=== PATIENT | male | born 1945 | race Caucasian/White ===

== ENCOUNTER → 2016-12-12 | Outpatient (CLI) | payer MEDICARE ==
[2016-12-12 09:02] LABS: Basophils % (A) 0 %; CH 33.3; CHCM 36.3; Eosinophils # (A) 0.1 k/uL (0-0.7); Eosinophils % (A) 2 %; HCT 50.8 % (39.0-53.0); HDW 2.92; HGB 17.4 gm/dL (13.0-17.5); Luc # (Auto) 0.05; Luc % (Auto) 1; Lymphocytes # (A) 0.8 k/uL (1.0-4.8); Lymphocytes % (A) 17 %; MCH 31.5 pg (25.0-35.0); MCHC 34.2 g/dL (31.0-37.0); MCV 92.2 fL (80.0-100.0); Mean Platelet Volume 7.7; Monocytes # (A) 0.4 k/uL (0-1.0); Monocytes % (A) 8 %; Neutrophils # (A) 3.6 k/uL (1.3-7.7); Neutrophils % (A) 72 %; RBC 5.51 m/uL (4.30-5.90); RDW 14.2 % (11.5-15.5)
[2016-12-12 10:41] LABS: ALT 35 U/L (21-72); AST 30 U/L (17-59); Alkaline Phosphatase 74 U/L (38-126); Anion Gap 8 mmol/L; Blood Urea Nitrogen 18 mg/dL (9-20); Calcium 9.1 mg/dL (8.4-10.2); Carbon Dioxide 28 mmol/L (22-30); Chloride 105 mmol/L (98-107); Cholesterol 181 mg/dL (<200); Glucose 89 mg/dL (74-99); HDL Cholesterol 47 mg/dL (40-60); Non-African American GFR(MDRD) >60 (>60 ml/min/1.73 sqM); Potassium 3.7 mmol/L (3.5-5.1); Sodium 141 mmol/L (137-145); Total Bilirubin 1.3 mg/dL (0.2-1.3); Total Protein 6.1 g/dL (6.3-8.2)
== END | disposition home or self-care (01) ==
LOC: LABWHC1 08:28
PROVIDERS: ATTEND Internal Medicine
DX: Z00.00 Encounter for general adult medical examination without abnormal findings (principal); E78.5 Hyperlipidemia, unspecified
CPT/HCPCS: 84439; 80061; 80053; 84443; 85025; 36415; G0103

== ENCOUNTER 2017-08-08 07:57 | Day surgery (SDC) | payer MEDICARE ==
[2017-08-07 08:52] VITALS: BMI 25.8
[~2017-08-08 07:57] MED LIST: DEXAMETHASONE SOD PHOSPHATE 10 MG/ML 1 ML VIAL IV ONE; HEPARIN SODIUM,PORCINE 5,000 UNIT/ML 1 ML VIAL SQ ONE; HYDROmorphone 0.5 MG/0.5 ML SYRINGE IVP PRN; LIDOCAINE 1% 20 ML VIAL (10MG/ML) FOR IV START INTRADERMA PRN; MIDAZOLAM 2 MG/2 ML VIAL IV PRN; MORPHINE SULFATE 2 MG/ML SYRINGE IV PRN; ONDANSETRON 4 MG/2 ML VIAL IVP ONE; SCOPOLAMINE 1.5MG/72HR PATCH TRANSDERM ONE; ceFAZolin IN SWFI 2 GM/20 ML SYRINGE IVP ONE
[2017-08-08 08:32] LABS: Glucose,Whole Blood 88 mg/dL (75-99)
[2017-08-08] MEDS: LACTATED RINGERS 1,000 ML IV SCH ×2 (08:45→08:46)
[2017-08-08] MEDS ORDERED: GLYCOPYRROLATE 0.2 MG/ML 2 ML VIAL ONE (09:53)
[2017-08-08] MEDS ORDERED: fentaNYL (PF) 50 MCG/ML 2 ML AMP ONE (09:53)
[2017-08-08] MEDS ORDERED: MIDAZOLAM 2 MG/2 ML VIAL ONE (09:53)
[2017-08-08] MEDS ORDERED: SUCCINYLCHOLINE CHLORIDE 100 MG/5 ML SYR IV ONE (09:53)
[2017-08-08] MEDS ORDERED: PROPOFOL 10 MG/ML 20 ML VIAL IV ONE (09:53)
[2017-08-08] MEDS ORDERED: LIDOCAINE 1% INJ 10MG/ML (20 ML MDV) ONE (09:53)
[2017-08-08] MEDS ORDERED: NEOSTIGMINE 1 MG/ML 10 ML VIAL ONE (09:53)
[2017-08-08] MEDS ORDERED: ePHEDrine SULFATE/0.9% NACL/PF 50 MG/5 ML SYRINGE IV ONE (09:53)
[2017-08-08] MEDS ORDERED: ROCURONIUM BROMIDE 10 MG/ML 10 ML VIAL IV ONE (09:53)
[2017-08-08] MEDS ORDERED: LABETALOL 5 MG/ML VIAL MDV ONE (09:53)
[2017-08-08] MEDS ORDERED: BUPIVACAINE (PF) 0.25% 30 ML VIAL SQ ONE (10:30)
[2017-08-08] MEDS ORDERED: NALOXONE 0.4 MG/ML 1 ML VIAL IV PRN (11:34)
[2017-08-08] MEDS ORDERED: HYDROcodone/APAP 5-325MG 1 EACH TAB PO PRN (11:34)
--- NOTE | 2017-08-08 11:37 | P.OP ---
Date of Procedure: 08/08/17 Procedure(s) Performed: PREOPERATIVE DIAGNOSIS: Left inguinal hernia POSTOPERATIVE DIAGNOSIS: Same PROCEDURE: Laparoscopic repair left inguinal hernia with the da Gerri robot assistance with mesh SURGEON: Yunior EBL: Minimal ANESTHESIA: General COMPLICATIONS: None OPERATIVE PROCEDURE: Patient was placed in the operating table in the supine position. The patient was placed under general anesthesia. The abdomen was prepped and draped in usual sterile fashion. A small curvilinear supraumbilical incision was made. The fascia was retracted anteriorly with Xavi forceps. The Veress needle was inserted. The saline drop test was normal. Insufflation took place to 15 mmHg. A 5 mm trocar was then inserted. 2 additional 8 mm trochars were placed in the right upper quadrant and left upper quadrant under visualization. The initial 5 was then switched to an 8 mm trocar. The robotic arms were then brought in and docked into place. The fenestrated bipolar was used in the left arm and the laparoscopic kadeem was utilized in the right arm. A 30 12 mm scope was used in the up position. The peritoneal cavity was inspected. The patient had a moderate-sized indirect left inguinal hernia with some adhesions to the sigmoid colon. There was no visible right-sided hernia noted area The peritoneum was incised in a horizontal fashion cephalad to the internal inguinal ring. Following that careful dissection of the preperitoneal space took place. This took place using both electrocautery, sharp dissection but primarily blunt dissection. Visualization of the pubic tubercle and Yuniel's ligament took place medially. Full dissection took place laterally as well. The hernia sac was fully dissected. Once we had adequate space the 15 x 10 progrip mesh was advanced into the preperitoneal space and flattened out appropriately to cover all potential hernia sites. No sutures were used. The peritoneal defect was then closed using a locking 2-0 VLok suture. The pneumoperitoneum was then evacuated. The fascia at the 12 mm site was closed using the Daniel Rush technique and an 0 Vicryl stitch. The skin of all 3 sites was closed using a 4- 0 Monocryl stitch. Steri-Strips and sterile dressings were applied. DISPOSITION: Stable to recovery room
[2017-08-08 11:44] VITALS: TEMP 97.2
[2017-08-08] MEDS ORDERED: MORPHINE SULFATE 4MG/4ML SYRG IVP ONE (11:55)
[2017-08-08] MEDS ORDERED: MORPHINE SULFATE 4 MG/ML SYRINGE IVP ONE (12:05)
[2017-08-08] MEDS ORDERED: fentaNYL (PF) 50 MCG/ML 2 ML AMP IVP ONE (12:16)
[2017-08-08] MEDS ORDERED: HYDROcodone/APAP 5-325MG 1 EACH TAB PO ONE (13:12)
[2017-08-08 13:50] VITALS: RESP 16
[2017-08-08] MEDS ORDERED: LACTATED RINGERS 1,000 ML IV ONE (14:47)
[2017-08-08 14:59] VITALS: BP 154/85; PULSE 92
== END 2017-08-08 16:08 | disposition home or self-care (01) ==
LOC: OR 07:57
PROVIDERS: ATTEND Surgery
DX: K40.90 Unilateral inguinal hernia, without obstruction or gangrene, not specified as recurrent (principal); K66.0 Peritoneal adhesions (postprocedural) (postinfection); I49.1 Atrial premature depolarization; I45.81 Long QT syndrome; J45.909 Unspecified asthma, uncomplicated; M10.9 Gout, unspecified; I10 Essential (primary) hypertension; Z79.51 Long term (current) use of inhaled steroids; Z79.899 Other long term (current) drug therapy; Z87.891 Personal history of nicotine dependence
CPT/HCPCS: 93005; 49650; C1781; J2250; J2270 ×2; J1644; J1100; J2710; J2405; J2001; J3010; J0330; J2704; J0690

== ENCOUNTER 2017-11-20 11:27 | Emergency (ER) | payer MEDICARE ==
[2017-11-20] MEDS ORDERED: MECLIZINE 12.5 MG TAB PO STA (12:21)
--- NOTE | 2017-11-20 12:24 | ED ---
Dizziness HPI - General Chief Complaint: Dizziness Stated Complaint: DIZZINESS Time Seen by Provider: 11/20/17 11:50 Source: patient, family, RN notes reviewed Mode of arrival: wheelchair Limitations: no limitations - History of Present Illness Initial Comments: This is a 72-year-old male who states he was a local drugstore today when he started feeling strange felt like he was weaving while he was walking. No headache no palpitations no focal weakness. She is focal. He was off balance. He was able to walk out of the store drive home he felt like he was on the verge of passing out. He states he is feeling better now. He does have a history of vertigo in the past and states it feels different. He has not had a spinning sensation. He does state however his sinuses have been congested over last several days. No overt ear pain or sore throat. No overt rhinorrhea at this time no chest pain no palpitations no cough or shortness of breath. MD Complaint: dizziness, lightheadedness, difficulty walking - Related Data Home Medications Medication Instructions Recorded Confirmed Albuterol Sulfate [Proair Hfa] 2 puff INHALATION RT-QID PRN 02/22/14 11/20/17 Montelukast [Singulair] 10 mg PO DAILY 08/07/17 11/20/17 Brimonidine Tartrate [Alphagan P 1 drops BOTH EYES BID 11/20/17 11/20/17 0.2% Ophth Soln] Mometasone Furoate [Asmanex] 1 puff INHALATION RT-HS 11/20/17 11/20/17 Previous Rx's Medication Instructions Recorded Meclizine [Antivert] 25 mg PO TID #20 tab 11/20/17 Allergies Allergy/AdvReac Type Severity Reaction Status Date / Time No Known Allergies Allergy Verified 11/20/17 11:50 Review of Systems ROS Statement: Those systems with pertinent positive or pertinent negative responses have been documented in the HPI. ROS Other: All systems not noted in ROS Statement are negative. Past Medical History Past Medical History: Asthma, Eye Disorder, Hypertension, Osteoarthritis (OA) Additional Past Medical History / Comment(s): back injury, glaucoma, OCCASIONAL IRREGULAR HEART BEAT History of Any Multi-Drug Resistant Organisms: None Reported Past Surgical History: Orthopedic Surgery Additional Past Surgical History / Comment(s): rotator cuff repair- LEFT SHOULDER , LYMPH NODE REMOVED Past Anesthesia/Blood Transfusion Reactions: Motion Sickness Past Psychological History: No Psychological Hx Reported Smoking Status: Former smoker Past Alcohol Use History: Rare Past Drug Use History: None Reported - Past Family History Father Family Medical History: Cancer Additional Family Medical History / Comment(s): father had esophageal cancer Mother Family Medical History: Hypertension General Exam - General Exam Comments Initial Comments: This is a well-developed well-nourished awake alert oriented 3 male Limitations: no limitations General appearance: alert, in no apparent distress Head exam: Present: atraumatic, normocephalic, normal inspection Eye exam: Present: normal appearance, PERRL, EOMI. Absent: scleral icterus, conjunctival injection, periorbital swelling ENT exam: Present: normal exam, mucous membranes moist Neck exam: Present: normal inspection, full ROM, other (No stridor JVD or bruits ). Absent: tenderness, meningismus, lymphadenopathy Respiratory exam: Present: normal lung sounds bilaterally. Absent: respiratory distress, wheezes, rales, rhonchi, stridor Cardiovascular Exam: Present: regular rate, normal rhythm, normal heart sounds. Absent: systolic murmur, diastolic murmur, rubs, gallop, clicks GI/Abdominal exam: Present: soft, normal bowel sounds. Absent: distended, tenderness, guarding, rebound, rigid Extremities exam: Present: normal inspection, full ROM, normal capillary refill. Absent: tenderness, pedal edema, joint swelling, calf tenderness Back exam: Present: normal inspection Neurological exam: Present: alert, oriented X3, CN II-XII intact Psychiatric exam: Present: normal affect, normal mood Skin exam: Present: warm, dry, intact, normal color. Absent: rash Course Vital Signs 11/20/17 11/20/17 11:30 13:13 Temperature 97.4 F L Pulse Rate 73 50 L Respiratory 16 18 Rate Blood Pressure 189/76 164/77 O2 Sat by Pulse 99 96 Oximetry EKG Findings - EKG Results: EKG: interpreted by SEGUNDO, sinus rhythm (Sinus rhythm rate 65. We'll 196 QRS duration 124 QT since QTC 436/453 nonspecific interventricular conduction delay is noted.) Medical Decision Making - Medical Decision Making She was observed for a period time he did ambulate without difficulty. He is feeling better after the Antivert. We did discuss possibilities of the symptoms. He states he's had a complete cardiac workup including checking his arteries going to his brain in the last year apparently was clear he'll be discharged on a prescription of Antivert he is follow-up with his doctor and return when necessary - Lab Data Result diagrams: 11/20/17 11:52 11/20/17 11:52 Lab Results 11/20/17 11/20/17 11/20/17 Range/Units 11:52 11:52 11:52 WBC 5.7 (3.8-10.6) k/uL RBC 5.47 (4.30-5.90) m/uL Hgb 17.0 (13.0-17.5) gm/dL Hct 50.3 (39.0-53.0) % MCV 91.9 (80.0-100.0) fL MCH 31.0 (25.0-35.0) pg MCHC 33.7 (31.0-37.0) g/dL RDW 12.9 (11.5-15.5) % Plt Count 143 L (150-450) k/uL Neutrophils % 71 % Lymphocytes % 16 % Monocytes % 9 % Eosinophils % 2 % Basophils % 0 % Neutrophils # 4.0 (1.3-7.7) k/uL Lymphocytes # 0.9 L (1.0-4.8) k/uL Monocytes # 0.5 (0-1.0) k/uL Eosinophils # 0.1 (0-0.7) k/uL Basophils # 0.0 (0-0.2) k/uL Sodium 139 (137-145) mmol/L Potassium 4.4 (3.5-5.1) mmol/L Chloride 106 (98-107) mmol/L Carbon Dioxide 25 (22-30) mmol/L Anion Gap 8 mmol/L BUN 23 H (9-20) mg/dL Creatinine 0.88 (0.66-1.25) mg/dL Est GFR (CKD-EPI)AfAm >90 (>60 ml/min/1.73 sqM) Est GFR (CKD-EPI)NonAf 85 (>60 ml/min/1.73 sqM) Glucose 78 (74-99) mg/dL Calcium 9.0 (8.4-10.2) mg/dL Magnesium 2.3 (1.6-2.3) mg/dL Total Bilirubin 1.0 (0.2-1.3) mg/dL AST 29 (17-59) U/L ALT 34 (21-72) U/L Alkaline Phosphatase 66 (38-126) U/L Total Creatine Kinase 87 (55-170) U/L CK-MB (CK-2) 2.4 (0.0-2.4) ng/mL CK-MB (CK-2) Rel Index 2.8 Troponin I <0.012 (0.000-0.034) ng/mL Total Protein 6.2 L (6.3-8.2) g/dL Albumin 4.0 (3.5-5.0) g/dL Urine Color Urine Appearance (Clear) Urine pH (5.0-8.0) Ur Specific [place] (1.001-1.035) Urine Protein (Negative) Urine Glucose (UA) (Negative) Urine Ketones (Negative) Urine Blood (Negative) Urine Nitrite (Negative) Urine Bilirubin (Negative) Urine Urobilinogen (<2.0) mg/dL Ur Leukocyte Esterase (Negative) 11/20/17 Range/Units 13:19 WBC (3.8-10.6) k/uL RBC (4.30-5.90) m/uL Hgb (13.0-17.5) gm/dL Hct (39.0-53.0) % MCV (80.0-100.0) fL MCH (25.0-35.0) pg MCHC (31.0-37.0) g/dL RDW (11.5-15.5) % Plt Count (150-450) k/uL Neutrophils % % Lymphocytes % % Monocytes % % Eosinophils % % Basophils % % Neutrophils # (1.3-7.7) k/uL Lymphocytes # (1.0-4.8) k/uL Monocytes # (0-1.0) k/uL Eosinophils # (0-0.7) k/uL Basophils # (0-0.2) k/uL Sodium (137-145) mmol/L Potassium (3.5-5.1) mmol/L Chloride (98-107) mmol/L Carbon Dioxide (22-30) mmol/L Anion Gap mmol/L BUN (9-20) mg/dL Creatinine (0.66-1.25) mg/dL Est GFR (CKD-EPI)AfAm (>60 ml/min/1.73 sqM) Est GFR (CKD-EPI)NonAf (>60 ml/min/1.73 sqM) Glucose (74-99) mg/dL Calcium (8.4-10.2) mg/dL Magnesium (1.6-2.3) mg/dL Total Bilirubin (0.2-1.3) mg/dL AST (17-59) U/L ALT (21-72) U/L Alkaline Phosphatase (38-126) U/L Total Creatine Kinase (55-170) U/L CK-MB (CK-2) (0.0-2.4) ng/mL CK-MB (CK-2) Rel Index Troponin I (0.000-0.034) ng/mL Total Protein (6.3-8.2) g/dL Albumin (3.5-5.0) g/dL Urine Color Yellow Urine Appearance Clear (Clear) Urine pH 6.0 (5.0-8.0) Ur Specific [place] 1.012 (1.001-1.035) Urine Protein Negative (Negative) Urine Glucose (UA) Negative (Negative) Urine Ketones Negative (Negative) Urine Blood Negative (Negative) Urine Nitrite Negative (Negative) Urine Bilirubin Negative (Negative) Urine Urobilinogen <2.0 (<2.0) mg/dL Ur Leukocyte Esterase Negative (Negative) - Radiology Data Radiology results: report reviewed (I did review the imaging and report no acute findings.), image reviewed Disposition Clinical Impression: Vertigo Disposition: HOME SELF-CARE Condition: Good Instructions: Dizziness (ED), Vertigo (ED) Prescriptions: Meclizine [Antivert] 25 mg PO TID #20 tab Is patient prescribed a controlled substance at d/c from ED?: No Referrals: Kori Cruz MD [Primary Care Provider] - 1-2 days
[2017-11-20 12:38] LABS: Basophils % (A) 0 %; Eosinophils # (A) 0.1 k/uL (0-0.7); Eosinophils % (A) 2 %; HCT 50.3 % (39.0-53.0); Lymphocytes # (A) 0.9 k/uL (1.0-4.8); Lymphocytes % (A) 16 %; MCHC 33.7 g/dL (31.0-37.0); MCV 91.9 fL (80.0-100.0); Monocytes # (A) 0.5 k/uL (0-1.0); Monocytes % (A) 9 %; Neutrophils % (A) 71 %; Platelet Count 143 k/uL (150-450); RBC 5.47 m/uL (4.30-5.90); RDW 12.9 % (11.5-15.5); WBC 5.7 k/uL (3.8-10.6)
[2017-11-20 12:52] LABS: ALT 34 U/L (21-72); AST 29 U/L (17-59); Alkaline Phosphatase 66 U/L (38-126); Anion Gap 8 mmol/L; Blood Urea Nitrogen 23 mg/dL (9-20); Carbon Dioxide 25 mmol/L (22-30); Chloride 106 mmol/L (98-107); Glucose 78 mg/dL (74-99); Magnesium 2.3 mg/dL (1.6-2.3); Potassium 4.4 mmol/L (3.5-5.1); Sodium 139 mmol/L (137-145); Total Protein 6.2 g/dL (6.3-8.2)
--- NOTE | 2017-11-20 12:59 | CT ---
EXAMINATION TYPE: CT brain wo con DATE OF EXAM: 11/20/2017 COMPARISON: None INDICATION: Dizziness DLP: 1106 mGycm, Automated exposure control for dose reduction was used. CONTRAST: None CT of the brain is performed utilizing 3 mm thick sections through the posterior fossa and 3 mm thick sections through the remaining calvarium. Study is performed within 24 hours of arrival to the hosp ital. No abnormal hyperdensity is present to suggest an acute intracranial hemorrhage. No mass lesion is evident. No acute infarcts are evident. Some subtle subcortical white matter change may be present in the left frontal parietal region be some chronic white matter ischemic change. Subcortical infarct be conside red. Ventricles and sulci are appropriate for the patient age. Paranasal sinuses and mastoid air cells within the [id number] are clear. IMPRESSIONS: 1. Chronic appearing subcortical white matter change greatest in the left frontal parietal region 2 . An acute intracranial process is not identified.
[2017-11-20 13:02] LABS: Creatine Kinase 87 U/L (55-170)
[2017-11-20 13:15] VITALS: RESP 18
[2017-11-20 13:18] LABS: Creatine Kinase MB 2.4 ng/mL (0.0-2.4); Troponin I <0.012 ng/mL (0.000-0.034)
--- NOTE | 2017-11-20 13:26 | XR ---
EXAMINATION TYPE: XR chest 2V DATE OF EXAM: 11/20/2017 COMPARISON: 02/22/2014 INDICATION: Cough, dizzy, asthma history TECHNIQUE: Frontal and lateral views of the chest are obtained. FINDINGS: The heart size is normal. The pulmonary vasculature is normal. The lungs are clear. IMPRESSION: 1. No acute pulmonary process.
[2017-11-20 13:29] LABS: Appearance,Urine Clear (Clear); Bilirubin,Urine Negative (Negative); Blood,Urine Negative (Negative); Color,Urine Yellow; Glucose,Urine (UA) Negative (Negative); Ketones,Urine Negative (Negative); Leukocyte Esterase,Urine Negative (Negative); Nitrite,Urine Negative (Negative); Protein,Urine Negative (Negative); Specific Gravity,Urine 1.012 (1.001-1.035); Urobilinogen,Urine <2.0 mg/dL (<2.0)
[2017-11-20 14:01] VITALS: BP 156/74; PULSE 61; TEMP 97.9
== END 2017-11-20 14:11 | disposition home or self-care (01) ==
LOC: EC 11:27
DX: R42 Dizziness and giddiness (principal); R09.81 Nasal congestion; J45.909 Unspecified asthma, uncomplicated; H40.9 Unspecified glaucoma; Z87.891 Personal history of nicotine dependence; Z79.51 Long term (current) use of inhaled steroids; Z79.899 Other long term (current) drug therapy
CPT/HCPCS: 36415; 70450; 71046; 80053; 81003; 82550; 82553; 83735; 84484; 85025; 93005; 99284

== ENCOUNTER → 2018-01-31 | Outpatient (CLI) | payer MEDICARE ==
[2018-01-31 09:01] LABS: Basophils % (A) 0 %; Eosinophils # (A) 0.1 k/uL (0-0.7); Eosinophils % (A) 2 %; HCT 48.8 % (39.0-53.0); HGB 16.7 gm/dL (13.0-17.5); Lymphocytes # (A) 0.5 k/uL (1.0-4.8); Lymphocytes % (A) 7 %; MCH 30.9 pg (25.0-35.0); MCHC 34.2 g/dL (31.0-37.0); MCV 90.5 fL (80.0-100.0); Mean Platelet Volume 7.4; Monocytes # (A) 0.5 k/uL (0-1.0); Monocytes % (A) 7 %; Neutrophils # (A) 6.4 k/uL (1.3-7.7); Neutrophils % (A) 84 %; Platelet Count 126 k/uL (150-450); RDW 12.8 % (11.5-15.5); WBC 7.7 k/uL (3.8-10.6)
[2018-01-31 17:43] LABS: Albumin 4.2 g/dL (3.80-4.90); Albumin/Globulin Ratio 3.23 (1.20-2.10); Calcium 8.6 mg/dL (8.7-10.3); Globulin 1.3 g/dL (2.1-3.7); LDL Cholesterol,Calculated 107.2 mg/dL (0.0-131.0); Potassium 4.2 mmol/L (3.5-5.5); Total Bilirubin 1.4 mg/dL (0.3-1.2); Total Protein 5.5 g/dL (6.2-8.2); VLDL Calculation 23.8 mg/dL (5.00-40.00)
[2018-01-31 17:48] LABS: T4, Free (Free Thyroxine) 1.2 ng/dL (0.80-1.80)
== END ==
LOC: LABWHC1 08:00
PROVIDERS: ATTEND Internal Medicine
DX: E78.1 Pure hyperglyceridemia (principal); Z12.5 Encounter for screening for malignant neoplasm of prostate
CPT/HCPCS: 84439; 80061; 80053; 84443; 85025; 36415; G0103

== ENCOUNTER → 2018-02-20 | Outpatient (CLI) | payer MEDICARE ==
[2018-02-20 17:45] LABS: Basophils % (A) 1 %; Eosinophils # (A) 0.2 k/uL (0-0.7); Eosinophils % (A) 3 %; HCT 50.4 % (39.0-53.0); HGB 16.9 gm/dL (13.0-17.5); Lymphocytes # (A) 1.1 k/uL (1.0-4.8); Lymphocytes % (A) 18 %; MCH 30.7 pg (25.0-35.0); MCHC 33.6 g/dL (31.0-37.0); MCV 91.3 fL (80.0-100.0); Mean Platelet Volume 6.8; Monocytes # (A) 0.4 k/uL (0-1.0); Monocytes % (A) 7 %; Neutrophils # (A) 4.4 k/uL (1.3-7.7); Neutrophils % (A) 70 %; Platelet Count 159 k/uL (150-450); RBC 5.52 m/uL (4.30-5.90); RDW 13.3 % (11.5-15.5); WBC 6.3 k/uL (3.8-10.6)
== END ==
LOC: LABWHC1 16:25
PROVIDERS: ATTEND Internal Medicine
DX: D69.6 Thrombocytopenia, unspecified (principal)
CPT/HCPCS: 36415; 85025

== ENCOUNTER 2018-03-01 11:39 | Day surgery (SDC) | payer MEDICARE ==
[2018-02-27 12:39] VITALS: BMI 26.5
--- NOTE | 2018-02-28 15:29 | HP ---
HISTORY AND PHYSICAL DATE OF SERVICE: 03/01/2018 Oh Woo is a 72-year-old patient seen with progressive left knee pain. Treatment options were discussed with him. He elected to proceed with arthroscopy. Consent regarding the procedure was obtained. PAST MEDICAL HISTORY: Asthma. PAST SURGICAL HISTORY: Herniorrhaphy. DAILY MEDICATIONS: 1. Albuterol. 2. . 3. Claritin. 4. Singulair. ALLERGIES: None reported. SOCIAL HISTORY: He denies tobacco use. PHYSICAL EVALUATION LEFT KNEE: Range of motion is 0 to 120 degrees. There is tenderness along the medial joint line. Positive medial Angelica's. Ligaments are stable. Hip rotation without pain. Distal neurovascular exam intact. RADIOGRAPHS OF THE LEFT KNEE: Revealed moderate tricompartmental osteoarthritis. The left knee MRI revealed a medial meniscal tear as well as osteoarthritic changes. IMPRESSION: 1. Internal derangement, left knee with medial meniscal tear. 2. Asthma. PLAN: Left knee arthroscopy with partial meniscectomy and debridement. MMODL / IJN: [id number] /
[~2018-03-01 11:39] MED LIST changes: -HEPARIN SODIUM,PORCINE 5,000 UNIT/ML 1 ML VIAL SQ ONE; -HYDROmorphone 0.5 MG/0.5 ML SYRINGE IVP PRN; +LACTATED RINGERS 1,000 ML IV SCH; -LIDOCAINE 1% 20 ML VIAL (10MG/ML) FOR IV START INTRADERMA PRN; -MORPHINE SULFATE 2 MG/ML SYRINGE IV PRN; -ONDANSETRON 4 MG/2 ML VIAL IVP ONE; -SCOPOLAMINE 1.5MG/72HR PATCH TRANSDERM ONE
[2018-03-01 12:13] LABS: Glucose,Whole Blood 86 mg/dL (75-99)
[2018-03-01] MEDS ORDERED: LIDOCAINE 1% 20 ML VIAL (10MG/ML) FOR IV START INTRADERMA ONE (12:20)
[2018-03-01] MEDS: ONDANSETRON 4 MG/2 ML VIAL IVP ONE ×2 (12:25→15:07)
[2018-03-01] MEDS ORDERED: LIDOCAINE 1% INJ 10MG/ML (20 ML MDV) ONE (12:58)
[2018-03-01] MEDS ORDERED: GLYCOPYRROLATE 0.2 MG/ML 2 ML VIAL ONE (12:58)
[2018-03-01] MEDS ORDERED: fentaNYL (PF) 50 MCG/ML 2 ML AMP ONE (12:58)
[2018-03-01] MEDS ORDERED: PROPOFOL 10 MG/ML 20 ML VIAL IV ONE (12:58)
[2018-03-01] MEDS ORDERED: BUPIVACAIN-EPI 0.25%-1:200,000 30 ML VIAL INTRAARTIC ONE (13:00)
[2018-03-01 14:11] VITALS: TEMP 97.9
--- NOTE | 2018-03-01 14:16 | P.OP ---
Date of Procedure: 03/01/18 Preoperative Diagnosis: Internal derangement left knee Postoperative Diagnosis: 1. Tear medial meniscus left knee 2. Grade 2/3 chondromalacia medial femoral condyle left knee 3. Reactive synovitis medial and suprapatellar compartments left knee Procedure(s) Performed: 1. Arthroscopic partial medial meniscectomy left knee 2. Arthroscopic chondroplasty medial femoral condyle left knee 3. Arthroscopic partial synovectomy medial and suprapatellar compartments left knee Anesthesia: LEONORA, local Surgeon: Jovan Vitale Estimated Blood Loss (ml): 10 Pathology: none sent Condition: stable Disposition: PACU Indications for Procedure: 72-year-old patient seen with progressive left knee pain. After treatment options were discussed, he elected to proceed with arthroscopy. Operative Findings: see description of procedure Description of Procedure: Patient was taken to the operative suite. Patient underwent a general anesthetic by the department of anesthesia. Patient was given preoperative antibiotics. The left lower extremity was placed in a well-padded arthroscopic leg graff. The left leg was prepped and draped in the normal sterile orthopedic fashion. A lateral parapatellar and suprapatellar incision was made. Trochars were inserted. Arthroscopy was initiated. Suprapatellar pouch revealed diffuse thick reactive synovitis. The patellofemoral joint appeared to articulate congruently. There grade 1/2 chondromalacia of the patella with no osteochondral tears present.. The scope was guided into the medial gutter. No loose bodies or plica were identified. The scope was then guided into the medial compartment. A medial parapatellar incision was made. Trocar inserted followed by probe. There was a complex tear involving the midbody and posterior horn medial meniscus. There were grade 2/3 chondromalacia changes of the medial femoral condyle. There were some osteochondral tears present. There was thick reactive synovitis anteriorly. I performed a partial medial meniscectomy down to stable tissue. I performed a chondroplasty of the medial femoral condyle down to stable tissue and a partial synovectomy decompressing the thick reactive synovitis. The residual meniscus was stable. The residual osteochondral surface was stable. There was good decompression synovitis. Scope and probe were then guided into the intercondylar notch. Cruciates were identified, probed and found to be stable. The scope and probe were then guided into lateral compartment. There was some fraying of the posterior horn and midbody lateral meniscus. There was grade 1, changes lateral compartment with no osteochondral tears present. No loose bodies. No synovitis. I debrided the margins of that frayed meniscal tissue. The scope was in guided back into the suprapatellar compartment. I introduced a motorized shaver into the super patellar compartment. I debrided some piecemeal fragments of meniscus I encountered. I performed a partial synovectomy decompressing the reactive synovitis. Shaver was removed. I took one more look on the entire knee, no residual debris. Instruments were now removed from the joint. The joint was infiltrated with .25% Marcaine. Steri-Strips were applied to the portal sites. Sterile dressings were applied. The patient was placed into a DAVID hose. No tourniquet was utilized. The patient was awakened, transferred to a bed and taken to recovery stable satisfactory condition.
[2018-03-01] MEDS: HYDROmorphone 0.5 MG/0.5 ML SYRINGE IVP PRN ×4 (14:23→14:41)
[2018-03-01 14:47] VITALS: RESP 16
[2018-03-01] MEDS ORDERED: LACTATED RINGERS 1,000 ML IV ONE ×2 (14:47→16:30)
[2018-03-01 16:56] VITALS: PULSE 86
[2018-03-01 17:08] VITALS: BP 168/77
== END 2018-03-01 17:36 | disposition home or self-care (01) ==
LOC: OR 11:39
PROVIDERS: ATTEND Orthopaedic Surgery
DX: M23.322 Other meniscus derangements, posterior horn of medial meniscus, left knee (principal); M22.42 Chondromalacia patellae, left knee; M65.862 Other synovitis and tenosynovitis, left lower leg; J45.909 Unspecified asthma, uncomplicated; Z79.899 Other long term (current) drug therapy
CPT/HCPCS: 29881; J1100; J2405; J2001; J3010; J2704; J1170; J0690

== ENCOUNTER → 2019-02-12 | Outpatient (CLI) | payer MEDICARE ==
[2019-02-12 16:04] LABS: Albumin/Globulin Ratio 2.86 (1.60-3.17); Anion Gap 7.3 mmol/L (4.00-12.00); Calcium 8.8 mg/dL (8.7-10.3); Carbon Dioxide 29.7 mmol/L (21.6-31.8); Chol/HDL Ratio 3.84; Globulin 1.4 g/dL (1.6-3.3); LDL Cholesterol,Calculated 91.6 mg/dL (0.0-131.0); Non-African American GFR(CKD) 73.3 (60.0-200.0); Potassium 4.4 mmol/L (3.5-5.5); Total Bilirubin 1.3 mg/dL (0.3-1.2); Total Protein 5.4 g/dL (6.2-8.2); VLDL Calculation 30.4 mg/dL (5.00-40.00)
[2019-02-12 16:11] LABS: T4, Free (Free Thyroxine) 1.4 ng/dL (0.80-1.80)
== END ==
LOC: LABWHC1 08:11
PROVIDERS: ATTEND Internal Medicine
DX: Z00.00 Encounter for general adult medical examination without abnormal findings (principal); E78.5 Hyperlipidemia, unspecified; I10 Essential (primary) hypertension; Z12.5 Encounter for screening for malignant neoplasm of prostate
CPT/HCPCS: 36415; 80053; 80061; 84153; 84439; 84443

== ENCOUNTER 2020-08-25 08:34 | Day surgery (SDC) | payer MEDICARE ==
[2020-08-19 16:09] VITALS: BMI 24.7
[2020-08-25] MEDS ORDERED: LACTATED RINGERS 1,000 ML IV SCH (08:57)
[2020-08-25] MEDS ORDERED: LIDOCAINE 1% (10MG/ML) FOR IV START INTRADERMA PRN (08:57)
[2020-08-25 09:11] VITALS: RESP 16; TEMP 97.3
[2020-08-25] MEDS ORDERED: LIDOCAINE 1% INJ 10MG/ML (20 ML MDV) ONE (09:34)
[2020-08-25] MEDS ORDERED: PROPOFOL 10 MG/ML 20 ML VIAL IV ONE (09:34)
--- NOTE | 2020-08-25 09:58 | P.PCN ---
Date of Procedure: 08/25/20 Procedure(s) Performed: Brief history: Patient is a pleasant 75-year-old white male scheduled for an elective upper endoscopy as well as colonoscopy as a part of evaluation of persistent nausea, no abdominal pain and intermittent diarrhea for the last 1 year duration. He also has prior history of colon polyps. Last colonoscopy was 6 years ago. Procedure performed: Esophagogastroduodenoscopy with biopsy Colonoscopy with snare polypectomy and biopsy Preoperative diagnosis: Anesthesia: MAC Procedure: After informed consent was obtained from the patient was brought into the endoscopy unit and IV sedation was administered by anesthesia under continuous monitoring. Initially upper endoscopy was done. The Olympus GF 160 video endoscope was inserted inserted into the mouth and esophagus intubated without any difficulty and was gradually advanced into the stomach and duodenum and carefully examined. The bulb and second part of the duodenum appeared normal. Biopsies were done from the duodenum to rule out celiac disease. Had mild gastritis and biopsies were done from this area. TheThe scope was then withdrawn into the stomach adequately insufflated with air and upon careful examination the antrumd body, cardia and fundus appeared normal. The scope was then withdrawn into the esophagus. The GE junction was located at 40 cm to the incisors. It appeared regular with circumferential erythema consistent with LA grade a reflux esophagitis.. Rest of esophagus appeared normal and the patient tolerated the procedure well. At this time the patient continued to remain sedation. Initial digital rectal examination was normal. Olympus CF 160 video colonoscope was then inserted into the rectum and gradually advanced to the cecum without any difficulty. Careful examination was performed as the scope was gradually being withdrawn. The prep was excellent. The cecum, ascending colon, transverse colon, descending colon appeared normal. The sigmoid colon there was a 1 cm polyp removed by snare polypectomy. Rest of the, sigmoid colon and rectum appeared normal. Random b iopsies were done from ascending and descending colon to rule out metastatic/collagenous colitis Retroflexion was performed in the rectum and no lesions were noted. Patient tolerated the procedure well. Impression: 1. Upper endoscopy revealed mild antral gastritis and LA grade a reflux esophagitis 2. Colonoscopy revealed 1 cm sigmoid colon polyp status post polypectomy Recommendations: Findings of this examination were discussed with the patient as well as his family. He was advised to follow with the biopsy results. If the biopsy results adenoma he can have a repeat colonoscopy in 3 years. He'll be seen in office in 2-3 weeks.
[2020-08-25 10:19] VITALS: BP 154/82; PULSE 62
== END 2020-08-25 10:37 | disposition home or self-care (01) ==
LOC: ORWHC2ENDO 08:34
PROVIDERS: ATTEND Internal Medicine Gastroenterology
DX: R11.0 Nausea (principal); R19.7 Diarrhea, unspecified; D12.5 Benign neoplasm of sigmoid colon; I10 Essential (primary) hypertension; F41.0 Panic disorder [episodic paroxysmal anxiety]; J45.909 Unspecified asthma, uncomplicated; K30 Functional dyspepsia; Z79.899 Other long term (current) drug therapy
CPT/HCPCS: 88305; 45380; 45385; 43239; J2001; J2704

== ENCOUNTER → 2020-09-10 | Outpatient (CLI) | payer MEDICARE ==
[2020-09-10 11:34] LABS: Basophils # (A) 0.02 X 10*3/uL (0.00-0.10); Basophils % (A) 0.5 %; Eosinophils # (A) 0.16 X 10*3/uL (0.04-0.35); Eosinophils % (A) 3.9 %; HCT 45.9 % (39.6-50.0); HGB 15.8 g/dL (13.0-17.0); Lymphocytes # (A) 0.72 X 10*3/uL (0.90-5.00); Lymphocytes % (A) 17.7 %; MCH 31.3 pg (27.0-32.0); MCHC 34.4 g/dL (32.0-37.0); MCV 90.9 fL (80.0-97.0); Mean Platelet Volume 10.4 fL (9.5-12.2); Monocytes # (A) 0.39 X 10*3/uL (0.20-1.00); Monocytes % (A) 9.6 %; Neutrophils # (A) 2.76 X 10*3/uL (1.80-7.70); Neutrophils % (A) 68.1 %; Platelet Count 151 X 10*3/uL (140-440); RBC 5.05 X 10*6/uL (4.40-5.60); RDW 12.9 % (11.5-14.5); WBC 4.06 X 10*3/uL (4.50-10.00)
[2020-09-10 12:40] LABS: African American GFR (CKD) 95.1 (60.0-200.0); Albumin 4.1 g/dL (3.80-4.90); Albumin/Globulin Ratio 2.41 (1.60-3.17); Anion Gap 7.7 mmol/L (4.00-12.00); BUN/Creat Ratio 23.33 Ratio (12.00-20.00); Calcium 8.9 mg/dL (8.7-10.3); Carbon Dioxide 28.3 mmol/L (21.6-31.8); Chol/HDL Ratio 4.42; Globulin 1.7 g/dL (1.6-3.3); LDL Cholesterol,Calculated 108.6 mg/dL (0.0-131.0); Non-African American GFR(CKD) 82.1 (60.0-200.0); Total Bilirubin 1.2 mg/dL (0.3-1.2); Total Protein 5.8 g/dL (6.2-8.2); VLDL Calculation 14.4 mg/dL (5.00-40.00)
[2020-09-10 12:48] LABS: Prostate Specific Antigen 2.6 ng/mL (0.0-6.5)
[2020-09-10 15:44] LABS: Erythrocyte Sedimentation Rate 2 mm/Hr (0-20)
== END | disposition home or self-care (01) ==
LOC: LABWHC1 07:50
PROVIDERS: ATTEND Internal Medicine
DX: Z00.00 Encounter for general adult medical examination without abnormal findings (principal); I10 Essential (primary) hypertension; E78.5 Hyperlipidemia, unspecified
CPT/HCPCS: 36415; 80053; 80061; 84153; 84439; 84443; 85025; 85652

== ENCOUNTER → 2021-09-15 | Outpatient (CLI) | payer MEDICARE ==
[2021-09-15 10:24] LABS: Basophils # (A) 0.02 X 10*3/uL (0.00-0.10); Basophils % (A) 0.4 %; Eosinophils % (A) 2.1 %; HCT 47.9 % (39.6-50.0); HGB 16.4 g/dL (13.0-17.0); Immature Grans, Automated 0.4 %; Lymphocytes % (A) 14.7 %; MCH 30.9 pg (27.0-32.0); MCHC 34.2 g/dL (32.0-37.0); MCV 90.2 fL (80.0-97.0); Mean Platelet Volume 10.8 fL (9.5-12.2); Monocytes # (A) 0.41 X 10*3/uL (0.20-1.00); Monocytes % (A) 8.6 %; NRBC Per 100 WBC 0 /100 WBCS (0.0-0.0); Neutrophils # (A) 3.51 X 10*3/uL (1.80-7.70); Neutrophils % (A) 73.8 %; Platelet Count 156 X 10*3/uL (140-440); RBC 5.31 X 10*6/uL (4.40-5.60); WBC 4.76 X 10*3/uL (4.50-10.00)
[2021-09-15 10:43] LABS: ALT 17 U/L (10-49); AST 22 U/L (14-35); African American GFR (CKD) 83.2 (60.0-200.0); Albumin 4.3 g/dL (3.8-4.9); Albumin/Globulin Ratio 2.87 (1.60-3.17); Alkaline Phosphatase 74 U/L (41-126); Blood Urea Nitrogen 21.1 mg/dL (9.0-27.0); Calcium 9.1 mg/dL (8.7-10.3); Carbon Dioxide 27.3 mmol/L (20.0-27.5); Chloride 106 mmol/L (96-109); Chol/HDL Ratio 4.04 Ratio; Globulin 1.5 g/dL (1.6-3.3); Glucose 94 mg/dL (70-110); LDL Cholesterol,Calculated 112.6 mg/dL (0.0-131.0); Non-African American GFR(CKD) 71.8 (60.0-200.0); Potassium 4.1 mmol/L (3.5-5.5); Sodium 143 mmol/L (135-145); Total Protein 5.8 g/dL (6.2-8.2); VLDL Calculation 17.64 mg/dL (5.00-40.00)
== END | disposition home or self-care (01) ==
LOC: LABWHC1 07:31
PROVIDERS: ATTEND Internal Medicine
DX: Z00.00 Encounter for general adult medical examination without abnormal findings (principal); E78.5 Hyperlipidemia, unspecified; I10 Essential (primary) hypertension
CPT/HCPCS: 36415; 80053; 80061; 84153; 84439; 84443; 85025

== ENCOUNTER 2021-11-23 09:42 | Day surgery (SDC) | payer MEDICARE ==
--- NOTE | 2021-11-23 02:23 | HP ---
HISTORY AND PHYSICAL DATE OF SURGERY: 11/23/2021 HISTORY OF PRESENT ILLNESS: Oh Woo is a 76-year-old gentleman seen with progressive right knee pain. We discussed options. He elected to proceed with right knee arthroscopy. Consent is obtained. PAST MEDICAL HISTORY: Asthma. PAST SURGICAL HISTORY: Herniorrhaphy. MEDICATIONS: Albuterol inhaler, Clarinex. ALLERGIES: None. SOCIAL HISTORY: Denies current tobacco use. PHYSICAL EVALUATION OF THE RIGHT KNEE: Range of motion is -3/4 to 135, [id number] effusion. Tenderness medial joint line. Positive medial Angelica's. Ligaments stable. Hip rotation without pain. Distal neurovascular exam is intact. RADIOGRAPHS: Radiographs of the right knee reveal mild osteoarthritis. IMPRESSION: 1. Internal derangement right knee with medial meniscal tear. 2. Hypertension. PLAN: Right knee arthroscopy with partial medial meniscectomy and debridement. MMODL / IJN: [id number] /
[~2021-11-23 09:42] MED LIST changes: -DEXAMETHASONE SOD PHOSPHATE 10 MG/ML 1 ML VIAL IV ONE; -LACTATED RINGERS 1,000 ML IV SCH; +LIDOCAINE 1% (10MG/ML) FOR IV START INTRADERMA PRN; -MIDAZOLAM 2 MG/2 ML VIAL IV PRN; +ONDANSETRON 4 MG/2 ML VIAL IVP ONE; -ceFAZolin IN SWFI 2 GM/20 ML SYRINGE IVP ONE
[2021-11-23] MEDS: LACTATED RINGERS 1,000 ML IV SCH (10:14)
[2021-11-23] MEDS ORDERED: DEXAMETHASONE SOD PHOSPHATE 4 MG/ML 1 ML VIAL IV ONE (10:25)
[2021-11-23 10:31] LABS: Glucose,Whole Blood 89 mg/dL (70-110)
[2021-11-23] MEDS ORDERED: PROPOFOL 10 MG/ML 20 ML VIAL IV ONE (11:04)
[2021-11-23] MEDS ORDERED: GLYCOPYRROLATE 0.2 MG/ML 2 ML VIAL ONE (11:04)
[2021-11-23] MEDS ORDERED: LIDOCAINE 2% INJ 20 MG/ML (2 ML VIAL) ONE (11:04)
[2021-11-23] MEDS ORDERED: MIDAZOLAM 2 MG/2 ML VIAL ONE (11:04)
[2021-11-23] MEDS ORDERED: fentaNYL (PF) 50 MCG/ML 2 ML AMP ONE (11:04)
[2021-11-23] MEDS ORDERED: BUPIVACAIN-EPI 0.25%-1:200,000 30 ML VIAL INTRAARTIC ONE (11:17)
[2021-11-23] MEDS ORDERED: LACTATED RINGERS 1,000 ML IV ONE ×2 (11:40→17:00)
--- NOTE | 2021-11-23 11:52 | P.OP ---
Date of Procedure: 11/23/21 (t) Preoperative Diagnosis: Internal derangement right knee Postoperative Diagnosis: 1. Tear medial and lateral meniscus right knee 2. Reactive synovitis medial, lateral and suprapatellar compartments left knee Procedure(s) Performed: 1. Arthroscopic partial medial and lateral meniscectomy right knee 2. Arthroscopic partial synovectomy medial, lateral and suprapatellar compartments right knee Anesthesia: LEONORA, local Surgeon: Jovan Vitale Estimated Blood Loss (ml): 9 Pathology: none sent Condition: stable Disposition: PACU Indications for Procedure: 76-year-old patient seen with progressive right knee pain. After treatment options were discussed, he elected to proceed with arthroscopy. Operative Findings: See description of procedure Description of Procedure: Patient was taken to the operative suite. Patient underwent a general anesthetic by the department of anesthesia. Patient was given preoperative antibiotics. The right lower extremity was placed in a well-padded arthroscopic leg graff. The right leg was prepped and draped in the normal sterile orthopedic fashion. A lateral parapatellar and suprapatellar incision was made. Trochars were inserted. Arthroscopy was initiated. Suprapatellar pouch revealed diffuse thick reactive synovitis. The patellofemoral joint appeared to articulate congruently. There was grade 1 chondromalacia of the patella without osteochondral tears being present. The scope was guided into the medial gutter. No loose bodies or plica were identified The scope was then guided into the medial compartment. A medial parapatellar incision was made. Trocar inserted followed by probe. There was a complex tear involving the posterior horn of the medial meniscus which did extend into the midbody area. There were grade 2/3 chondromalacia changes of medial femoral condyle without any significant osteochondral tears being present. There was some thick reactive synovitis anteriorly. I performed a partial medial meniscectomy getting down to stable meniscal tissue. I performed a partial synovectomy decompressing the reactive synovitis. The residual meniscus was stable. There was good decompression of the synovitis. Scope and probe were then guided into the intercondylar notch. Cruciates were identified, probed and found to be stable. The scope and probe were then guided into lateral compartment. There was a radial tear mid body lateral meniscus. There were grade 1, she changes along lateral compartment. There was thick reactive some-itis anteriorly. I performed a partial lateral meniscectomy. I performed a partial synovectomy. The residual meniscus was stable. There was good decompression of synovitis. The scope was in guided back into the suprapatellar compartment. I introduced a motorized shaver into the super patellar compartment. I debrided some piecemeal fragments of meniscus I encountered. I performed a partial synovectomy. The shaver was now removed. There was good decompression of synovitis. I took one more look around the entire knee, no residual debris. Instruments were now removed from the joint. The joint was infiltrated with .25% Marcaine. Steri-Strips were applied to the portal sites. Sterile dressings were applied. The patient was placed into a DAVID hose. No tourniquet was utilized. The patient was awakened, transferred to a bed and taken to recovery stable satisfactory condition.
[2021-11-23] MEDS: HYDROmorphone 0.5 MG/0.5 ML SYRINGE IVP PRN ×3 (12:04→16:35)
[2021-11-23] MEDS ORDERED: HYDROcodone/APAP 5-325MG 1 EACH TAB ONE (13:42)
[2021-11-23] MEDS ORDERED: TAMSULOSIN 0.4 MG CAP.ER.24H PO ONE (13:44)
[2021-11-23] MEDS ORDERED: HYDROcodone/APAP 5-325MG 1 EACH TAB PO ONE (13:44)
[2021-11-23 15:40] LABS: Anion Gap 13 mmol/L; Carbon Dioxide 24 mmol/L (22-30); Chloride 101 mmol/L (98-107); Potassium 4.2 mmol/L (3.5-5.1); Sodium 138 mmol/L (137-145)
[2021-11-23 15:50] LABS: Creatine Kinase MB 1.3 ng/mL (0.0-2.4)
[2021-11-23] MEDS ORDERED: KETOROLAC 15 MG/ML 1 ML VIAL IVP ONE (16:33)
[2021-11-23] MEDS ORDERED: METOCLOPRAMIDE 5 MG/ML 2 ML VIAL IVP ONE (16:40)
[2021-11-23] MEDS: HYDROcodone/APAP 5-325MG 1 EACH TAB PO PRN (18:21)
[2021-11-24] MEDS: HYDROcodone/APAP 5-325MG 1 EACH TAB PO PRN ×3 (03:10→16:29)
[2021-11-24 04:45] VITALS: RESP 18
[2021-11-24] MEDS: LACTATED RINGERS 1,000 ML IV SCH (06:22)
[2021-11-24] MEDS ORDERED: METOPROLOL SUCCINATE (ER) 25 MG TAB.ER.24H PO SCH (09:00)
[2021-11-24] MEDS ORDERED: TAMSULOSIN 0.4 MG CAP.ER.24H PO SCH (09:45)
--- NOTE | 2021-11-24 09:48 | P.PN ---
Subjective Progress Note Date: 11/24/21 Principal diagnosis: Status post right knee arthroscopy, abnormal heart rhythm, urinary retention Patient evaluated today at bedside, he is resting in his hospital bed on the cardiac stepdown unit. While patient was in the recovery room yesterday from his procedure, he was noted to have significant bradycardia. EKG revealed abnormal rhythm, he was transferred back to phase I for further evaluation. Anesthesia mask patient overnight. A cardiac consult was placed comments from medicine consult was also placed. Patient was also some urinary retention at that time, he did receive a dose of Flomax. The urinary catheter was then inserted. At bedside today, he is resting comfortably. Patient is having no acute pain with regards to the right knee. He denies any chest pain or shortness of breath at this time. Cardiac was in earlier this morning to see the patient and evaluate. Objective - Vital Signs Vital signs: Vital Signs Temp 98.0 F 11/24/21 04:00 Pulse 65 11/24/21 04:00 Resp 18 11/24/21 04:00 BP 137/79 11/24/21 04:00 Pulse Ox 98 11/24/21 04:00 FiO2 Intake & Output 11/23/21 11/24/21 11/24/21 18:59 06:59 18:59 Intake Total 2118 540 Output Total 1009 350 Balance 1109 -350 540 Weight 79.4 kg Intake: IV 2000 Oral 118 540 Output: Urine 1000 350 Estimated Blood Loss 9 Other: Voiding Method Indwelling Catheter - Exam Right lower extremity: Postop bandage and DAVID hoses in good position and condition, no obvious drainage appreciated Calf is soft, no tenderness with palpation Plantar flexion, dorsiflexion, EHL, FHL are intact Dorsalis pedis pulses 2+ - Labs CBC & Chem 7: 11/23/21 15:16 Assessment and Plan Assessment: Postoperative day #1 status post right knee arthroscopy Abnormal heart rhythm Urinary retention Plan: Pain control, utilized [place] as needed Bandage instructions, leave current bandaging in place, patient may remove after 72 hours from surgery Icing and elevating techniques discuss Weight-bear as tolerated Flomax has been restarted, discussed with nursing for trial voiding without catheter. If patient continues to recommend urology consult Other medical specialty recommendations appreciated Orthopedically patient stable for discharge, await recommendations from cardiology Time with Patient: Less than 30
[2021-11-24 10:19] VITALS: TEMP 98.1
--- NOTE | 2021-11-24 11:15 | P.CRDCN ---
History of Present Illness History of present illness: HISTORY OF PRESENTING ILLNESS This is a pleasant 76-year-old male with a past medical history of hypertension, asthma, former tobacco use, vertebral compression fracture, left knee meniscus i njury. He follows in the office with Dr. Rodriguez. We have been asked to see in consultation for multiple PVCs, bigeminy. Patient presented to the hospital for elective right knee arthroscopy. After the procedure per nursing staff, patient had symptoms of lightheadedness, his vital signs were obtained and an EKG was obtained and patient was found to have significant PVCs with bigeminy. Patient was given 0.2mg Robinul. Patient was transferred to . EKG performed which revealed sinus rhythm, heart rate 79, frequent PVCs, right bundle-branch block, possible lead reversal, epsilon waves noted. Patient is seen and examined at bedside, no acute distress. Denies any chest pain, shortness of breath, lightheadedness, dizziness, syncope or syncope. Overall he is feeling well, his pain is controlled. Patient denies any history of CAD, ND, stroke, diabetes. He denies any family history of unexplained or sudden cardiac . DIAGNOSTICS * Repeat EKG this morning reveals sinus rhythm, heart rate 67, occasional PVC, appears to be an epsilon wave in V1 but these are not as prominent as prior E KG on 11/23 * Telemetry tracings indicate sinus rhythm, heart rates in the high 50s-70s, occasional PVCs noted overnight. This morning, patient with more frequent PVCs. * Laboratory reviewed, troponin negative, sodium 138, potassium 4.2, TSH within normal limits * Current home cardiac medications include metoprolol succinate 25 mg daily * Cardiolite stress test in the office 02/2021 revealed EF of 40%, small size mild intensity fixed inferior wall defect. No reversible perfusion defects noted. * Echocardiogram 01/2021 revealed EF 50%, small hypokinetic area of the inferior wall, small hypokinetic area of the inferior septal wall. Mild aortic regurgitation REVIEW OF SYSTEMS At the time of my exam: CONSTITUTIONAL: Denies fever or chills. CARDIOVASCULAR: Denies chest pain, shortness of breath, orthopnea, PND or palpitations. RESPIRATORY: Denies cough. GASTROINTESTINAL: Denies abdominal pain, diarrhea, constipation, nausea or vomiting. MUSCULOSKELETAL: Denies myalgias. NEUROLOGIC: Denies numbness, tingling, headacbe or weakness. ENDOCRINE: Denies fatigue, weight change, polydipsia or polyurina. GENITOURINARY: Denies burning, hematuria or urgency with micturation. HEMATOLOGIC: Denies history of anemia or bleeding. PHYSICAL EXAMINATION Blood pressure 157/71, heart rate 68, afebrile, oxygen saturations 99% on room air CONSTITUTIONAL: No apparent distress. HEENT: Head is normocephalic. Pupils are equal, round. Sclerae anicteric. Mucous membranes of the mouth are moist. No JVD. No carotid bruit. CHEST EXAMINATION: Lungs are clear to auscultation. No chest wall tenderness is noted on palpation or with deep breathing. HEART EXAMINATION: Regular rate and rhythm. S1, S2 heard. No murmurs, gallops or rub. ABDOMEN: Soft, nontender. Positive bowel sounds. EXTREMITIES: 2+ peripheral pulses, no lower extremity edema and no calf tenderness. NEUROLOGIC EXAMINATION: Patient is awake, alert and oriented x3. ASSESSMENT Premature ventricular complexes Status post left knee arthroscopy Hypertension History of asthma History of tobacco use PLAN Continue patient's metoprolol succinate. From a cardiology perspective, no further inpatient workup is indicated at this time, further cardiac workup as an outpatient. Patient is stable for discharge today. Recommended close follow-up with Dr. Rodriguez in the office in 1- 2 weeks Nurse practitioner note has been reviewed by physician. Signing provider agrees with the documented findings, assessment, and plan of care. Past Medical History Past Medical History: Asthma, Eye Disorder, Hypertension, Musculoskeletal Disorder, Osteoarthritis (OA) Additional Past Medical History / Comment(s): past hx. VERTEBRAE COMPRESSION FX., OCCASIONAL IRREGULAR HEART BEAT/MINOR VALVE PROLAPSE. LT KNEE MENISCUS INJURY. VARICOSE VEINS. hypoglycemic History of Any Multi-Drug Resistant Organisms: None Reported Past Surgical History: Hernia Repair, Orthopedic Surgery Additional Past Surgical History / Comment(s): Rotator Cuff Repair- LEFT SHOULDER. ING HERNIA. EXC CALCIUM DEPOSIT UPPER RT LEG. LYMPH NODE EXCISION GROIN. COLONOSCOPY, LT KNEE SX Past Anesthesia/Blood Transfusion Reactions: Motion Sickness Additional Past Anesthesia/Blood Transfusion Reaction / Comment(s): trouble urinating after last 2 surgeries Smoking Status: Former smoker - Past Family History Sister(s) Family Medical History: Cancer, CVA/TIA Father Family Medical History: Cancer Additional Family Medical History / Comment(s): father had esophageal cancer Mother Family Medical History: Hypertension Medications and Allergies Home Medications Medication Instructions Recorded Confirmed Type Albuterol Sulfate [Proair Hfa] 2 puff INHALATION RT-QID PRN 02/22/14 11/22/21 History Montelukast [Singulair] 10 mg PO HS 08/07/17 11/22/21 History Desloratadine [Clarinex] 5 mg PO DAILY 02/27/18 11/22/21 History Metoprolol Succinate [Toprol XL] 25 mg PO DAILY 08/19/20 11/22/21 History Ary 500 mg PO DAILY 11/22/21 11/22/21 History Turmeric Root Extract [Turmeric] 500 mg PO DAILY 11/22/21 11/22/21 History HYDROcodone/APAP 5-325MG [[place] 1 tab PO Q6HR PRN #12 tab 11/23/21 Rx 5-325] Tamsulosin [Flomax] 0.4 mg PO DAILY #12 cap 11/23/21 Rx Allergies Allergy/AdvReac Type Severity Reaction Status Date / Time No Known Allergies Allergy Verified 11/22/21 11:36 Physical Exam Vitals: Vital Signs Temp Pulse Pulse Pulse Resp BP BP 11/24/21 04:00 98.0 F 65 18 137/79 11/23/21 23:36 97.9 F 69 19 133/77 11/23/21 19:42 98.2 F 76 19 131/62 11/23/21 18:00 97.4 F L 54 L 18 161/67 11/23/21 17:15 76 16 135/70 11/23/21 17:00 76 17 147/76 11/23/21 16:45 80 16 164/82 11/23/21 16:30 80 16 183/94 11/23/21 16:13 78 18 160/79 11/23/21 15:59 79 18 172/83 11/23/21 15:44 89 18 181/63 11/23/21 14:08 76 18 169/74 11/23/21 13:48 79 16 173/78 11/23/21 13:28 78 16 168/81 11/23/21 13:13 74 16 152/80 11/23/21 12:53 73 16 155/87 11/23/21 12:39 91 16 123/65 11/23/21 12:24 76 16 118/56 11/23/21 12:09 72 16 161/76 11/23/21 11:54 97.0 F L 65 16 177/81 11/23/21 10:12 97.6 F 63 16 184/86 Pulse Ox 11/24/21 04:00 98 11/23/21 23:36 99 11/23/21 19:42 97 11/23/21 18:00 100 11/23/21 17:15 98 11/23/21 17:00 99 11/23/21 16:45 98 11/23/21 16:30 97 11/23/21 16:13 98 11/23/21 15:59 98 11/23/21 15:44 98 11/23/21 14:08 98 11/23/21 13:48 97 11/23/21 13:28 96 11/23/21 13:13 97 11/23/21 12:53 96 11/23/21 12:39 96 11/23/21 12:24 97 11/23/21 12:09 100 11/23/21 11:54 100 11/23/21 10:12 99 Intake and Output 11/23/21 11/24/21 11/24/21 22:59 06:59 14:59 Intake Total 1068 Output Total 1000 350 Balance 68 -350 Intake: IV 950 Oral 118 Output: Urine 1000 350 Other: Voiding Method Indwelling Catheter Indwelling Catheter Weight 79.4 kg Results 11/23/21 15:16 Cardiac Enzymes 11/23/21 11/23/21 Range/Units 15:10 18:21 CK-MB (CK-2) 1.3 (0.0-2.4) ng/mL Troponin I <0.012 (0.000-0.034) ng/mL Comprehensive Metabolic Panel 11/23/21 Range/Units 15:16 Sodium 138 (137-145) mmol/L Potassium 4.2 (3.5-5.1) mmol/L Chloride 101 (98-107) mmol/L Carbon Dioxide 24 (22-30) mmol/L Current Medications Generic Name Dose Route Start Last Admin Trade Name Freq PRN Reason Stop Dose Admin Hydrocodone Bitart/Acetaminophen 1 each 11/23/21 15:59 11/24/21 03:10 Hydrocodone/Apap 5-325mg 1 Each Tab PO 12/23/21 16:00 1 each Q6HR PRN Administration Pain Lactated Ringer's 1,000 mls @ 20 mls/hr 11/23/21 05:49 11/24/21 06:22 Lactated Ringers IV 12/23/21 05:50 20 mls/hr .Q24H KARENA Administration Lidocaine HCl 0.1 ml 11/23/21 05:49 11/23/21 10:14 Lidocaine 1% (10mg/Ml) For Iv Start INTRADERMA 12/23/21 05:50 0.1 ml PER PROTOCOL PRN Administration IV Start Intake and Output 11/23/21 11/24/21 11/24/21 22:59 06:59 14:59 Intake Total 1068 Output Total 1000 350 Balance 68 -350 Intake: IV 950 Oral 118 Output: Urine 1000 350 Other: Voiding Method Indwelling Catheter Indwelling Catheter Weight 79.4 kg 11/23/21 15:16
--- NOTE | 2021-11-24 13:28 | P.CNPUL ---
History of Present Illness Consult date: 11/24/21 Chief complaint: PVC's History of present illness: 76-year-old male patient, while underwent a right knee arthroscopic surgery for an underlying meniscal tear. Postop, the patient started having some cardiac arrhythmias and he was found to have multiple PVCs and bigeminal rhythm. He was asymptomatic. Denies having any chest pain. A cardiology consultation was placed accordingly. The patient has some issues with mitral valve prolapse. He has been followed up in our office by Dr. Cruz as his primary care physician. He is currently on room air oxygen. His cardiac rhythm is sinus. His EKG showing a normal sinus rhythm and his PVCs have subsided on today's evaluation. Hemodynamically stable. On his EKG, he has a RBB pattern. No basis and myocardial infarction. No history of congestion heart failure. Echocardiogram was ordered. He is known to have bronchial asthma and is a former smoker. He also has hypertension as comorbid condition and history of intermittent bronchial asthma. Noted the patient's echocardiogram from January 2020 was within normal ejection fraction. There was some inferior wall hypokinesis and mild aortic regurgitation and small hypokinetic area of inferior wall septal wall hypokinesis. His Cardiolite stress test from February 2021 showed an ejection fraction of 40%. He had a small sized mild intensity fixed inferior wall defect. No reversible perfusion defect. Otherwise pain is under good control. Electrodes are all stable. Muscle enzymes including CPK is at 58. The thyroid Function is within normal limits. Troponins are negative. Review of Systems All systems: negative Eyes: denies as per HPI, denies blurred vision, denies bulging eye, denies decreased vision, denies diplopia, denies discharge, denies dry eye, denies irritation, denies itching, denies pain, denies photophobia, denies loss of peripheral vision, denies loss of vision, denies tunnel vision/blind spots Ears: deny: decreased hearing, ear discharge, earache, tinnitus Ears, nose, mouth and throat: Reports as per HPI Breasts: absent: as per HPI, gynecomastia Cardiovascular: Reports as per HPI Respiratory: Reports as per HPI Gastrointestinal: Reports as per HPI Genitourinary: Reports as per HPI Musculoskeletal: Reports as per HPI (Knee surgery/arthroscopy), Reports gait dysfunction Musculoskeletal: absent: ankle pain, ankle stiffness, ankle swelling, as per HPI, elbow pain, elbow stiffness, elbow swelling, foot pain, foot stiffness, foot swelling, hand pain, hand stiffness, hand swelling, hip pain, hip stiff ness, hip swelling, knee pain, knee stiffness, knee swelling, shoulder pain, shoulder stiffness, shoulder swelling, wrist pain, wrist stiffness, wrist swelling Integumentary: Reports as per HPI Neurological: Reports as per HPI Psychiatric: Reports as per HPI Endocrine: Reports as per HPI Hematologic/Lymphatic: Reports as per HPI Allergic/Immunologic: Reports as per HPI Past Medical History Past Medical History: Asthma, Eye Disorder, Hypertension, Musculoskeletal Disorder, Osteoarthritis (OA) Additional Past Medical History / Comment(s): asthma, HTN, BPV, gout, MVP, PVC's, OA past hx. VERTEBRAE COMPRESSION FX., OCCASIONAL IRREGULAR HEART BEAT/MINOR VALVE PROLAPSE. LT KNEE MENISCUS INJURY. VARICOSE VEINS. History of Any Multi-Drug Resistant Organisms: None Reported Past Surgical History: Hernia Repair, Orthopedic Surgery Additional Past Surgical History / Comment(s): Rotator Cuff Repair- LEFT SHOUL ALVAREZ. ING HERNIA. EXC CALCIUM DEPOSIT UPPER RT LEG. LYMPH NODE EXCISION GROIN. COLONOSCOPY, LT KNEE SX Past Anesthesia/Blood Transfusion Reactions: Motion Sickness Additional Past Anesthesia/Blood Transfusion Reaction / Comment(s): trouble urinating after last 2 surgeries Smoking Status: Former smoker - Past Family History Sister(s) Family Medical History: Cancer, CVA/TIA Father Family Medical History: Cancer Additional Family Medical History / Comment(s): father had esophageal cancer Mother Family Medical History: Hypertension Medications and Allergies Home Medications Medication Instructions Recorded Confirmed Type Albuterol Sulfate [Proair Hfa] 2 puff INHALATION RT-QID PRN 02/22/14 11/22/21 History Montelukast [Singulair] 10 mg PO HS 08/07/17 11/22/21 History Desloratadine [Clarinex] 5 mg PO DAILY 02/27/18 11/22/21 History Metoprolol Succinate [Toprol XL] 25 mg PO DAILY 08/19/20 11/22/21 History Ary 500 mg PO DAILY 11/22/21 11/22/21 History Turmeric Root Extract [Turmeric] 500 mg PO DAILY 11/22/21 11/22/21 History HYDROcodone/APAP 5-325MG [[place] 1 tab PO Q6HR PRN #12 tab 11/23/21 Rx 5-325] Tamsulosin [Flomax] 0.4 mg PO DAILY #12 cap 11/23/21 Rx Allergies Allergy/AdvReac Type Severity Reaction Status Date / Time No Known Allergies Allergy Verified 11/22/21 11:36 Physical Exam Vitals: Vital Signs Temp Pulse Pulse Pulse Resp BP BP 11/24/21 04:00 98.0 F 65 18 137/79 11/23/21 23:36 97.9 F 69 19 133/77 11/23/21 19:42 98.2 F 76 19 131/62 11/23/21 18:00 97.4 F L 54 L 18 161/67 11/23/21 17:15 76 16 135/70 11/23/21 17:00 76 17 147/76 11/23/21 16:45 80 16 164/82 11/23/21 16:30 80 16 183/94 11/23/21 16:13 78 18 160/79 11/23/21 15:59 79 18 172/83 11/23/21 15:44 89 18 181/63 11/23/21 14:08 76 18 169/74 11/23/21 13:48 79 16 173/78 11/23/21 13:28 78 16 168/81 11/23/21 13:13 74 16 152/80 11/23/21 12:53 73 16 155/87 11/23/21 12:39 91 16 123/65 11/23/21 12:24 76 16 118/56 11/23/21 12:09 72 16 161/76 11/23/21 11:54 97.0 F L 65 16 177/81 11/23/21 10:12 97.6 F 63 16 184/86 Pulse Ox 11/24/21 04:00 98 11/23/21 23:36 99 11/23/21 19:42 97 11/23/21 18:00 100 11/23/21 17:15 98 11/23/21 17:00 99 11/23/21 16:45 98 11/23/21 16:30 97 11/23/21 16:13 98 11/23/21 15:59 98 11/23/21 15:44 98 11/23/21 14:08 98 11/23/21 13:48 97 11/23/21 13:28 96 11/23/21 13:13 97 11/23/21 12:53 96 11/23/21 12:39 96 11/23/21 12:24 97 11/23/21 12:09 100 11/23/21 11:54 100 11/23/21 10:12 99 Intake and Output 11/23/21 11/24/21 11/24/21 22:59 06:59 14:59 Intake Total 1068 540 Output Total 1000 350 Balance 68 -350 540 Intake: IV 950 Oral 118 540 Output: Urine 1000 350 Other: Voiding Method Indwelling Catheter Indwelling Catheter Weight 79.4 kg Blood pressure 157/71, heart rate 68, afebrile, oxygen saturations 99% on room air CONSTITUTIONAL: No apparent distress. HEENT: Head is normocephalic. Pupils are equal, round. Sclerae anicteric. Mucous membranes of the mouth are moist. No JVD. No carotid bruit. CHEST EXAMINATION: Lungs are clear to auscultation. No chest wall tenderness is noted on palpation or with deep breathing. HEART EXAMINATION: Regular rate and rhythm. S1, S2 heard. No murmurs, gallops or rub. ABDOMEN: Soft, nontender. Positive bowel sounds. EXTREMITIES: 2+ peripheral pulses, no lower extremity edema and no calf te nderness. The surgical wound site over the right knee areas dry clean and intact NEUROLOGIC EXAMINATION: Patient is awake, alert and oriented x3. Results - Laboratory Findings CBC and BMP: 11/23/21 15:16 Assessment and Plan Plan: Right knee arthroscopy patient is postop day #1. Surgery was done for a meniscal tear and the patient has a lateral meniscal tear Premature ventricular beats, bigeminal rhythm, asymptomatic without any hemodynamic instability or signs of any coronary ischemia. Cardiac workup as an outpatient basis including an echocardiogram from January 2021 and a cardiac stress test from February 2021. Mild CHF with an ejection fraction of 40% based on a previous cardiac stress test Hypertension Mild intermittent bronchial asthma Gout BPH Questionable history of mitral valve prolapse Compression fracture of the vertebral Varicose veins Plan Electrodes have been checked all within normal Cardiology consult Patient will be placed on metoprolol Routine postoperative care Increase mobility We'll continue to follow
[2021-11-24 15:02] VITALS: BP 167/77; PULSE 60
--- NOTE | 2021-11-25 08:13 | P.DS ---
Providers Date of admission: 11/23/2021 Expected date of discharge: 11/24/21 Attending physician: Jovan Vitale Consults: 11/23/21 14:47 Consult Physician Stat Consulting Provider: Marcos Hoskins Consult Reason/Comments: bigemeny,arrythmias Do you want consulting provider notified?: Yes 11/23/21 15:15 Consult Physician Stat Consulting Provider: Izaiah Edgar Consult Reason/Comments: Multiple PVC's in Bigeminy Pattern Do you want consulting provider notified?: Already Contacted 11/23/21 15:59 Consult Physician Routine Consulting Provider: Kori Cruz Consult Reason/Comments: Medical Management Do you want consulting provider notified?: Yes Primary care physician: Kori Cruz Hospital Course: Date of admission: 11/23/2021 Date of discharge: 11/24/2021 Admission diagnosis: Status post right knee arthroscopy, abnormal heart rhythm, urinary retention Discharge diagnosis: Same Attending physician: Dr. Vitale Surgical procedures: Right knee arthroscopy Brief history: Patient is a and 76-year-old male who underwent a elective right knee arthroscopy on 11/23/2021. While in the recovery room, patient's heart rate was noted to decrease significantly. An EKG revealed an abnormal rhythm. Patient was admitted to the hospital for further evaluation by cardiology. Internal medicine was also consulted for medical management. Hospital course: Details of patient's surgery can be found in operative report. Patient did spend the night on the cardiac stepdown unit. Patient's orthopeidc and medical care was provided daily. Patient had daily laboratory tests performed for evaluation of overall blood counts. Patient had daily physical therapy to include strengthening range of motion as well as education with walker ambulation. Patient was treated with DAVID hose for their postoperative DVT prophylaxis during their inpatient stay. Patient did develop urinary retention after the surgery. A catheter was placed. Patient was started on 0.4 mg of Flomax during the hospital stay. After removal of the Roger, he was noted to retain about 400 mL of urine. Urology was contacted, patient was notified to continue with Flomax. Patient did not want a Roger catheter reinserted. Follow-up was scheduled for evaluation in the outpatient setting by urology. No acute cardiac events were noted, he was instructed to follow-up with cardiology in the outpatient setting. Patient reported satisfactory pain control with oral pain medications by postoperative day 0. Patient showed satisfactory progress with physical therapy. Patient moved steadily through the program and had no difficulty meeting the goals by postoperative day 1. Given patient's otherwise satisfactory course and having met physical therapy goals, plan is to discharge patient [home on postoperative day 1. Discharge condition/disposition: Patient will be discharged home in stable condition. Discharge medications: Instructions are given on resumption of patient's normal daily medications per primary care recommendation, in addition patient will be prescribed [place] 5 mg/325 mg, Flomax 0.4 mg. Discharge instructions: 1. Okay to remove bandage in 48 hours. 2. Weight-bear as tolerated 3. Utilize DAVID hose for DVT prophylaxis 4. Ice and elevate often 5. Follow-up with both cardiology and neurology in the outpatient setting 6. Plan for follow-up at [facility] in 2 weeks Procedures: Right knee arthroscopy Patient Condition at Discharge: Good Plan - Discharge Summary Discharge Rx Participant: Yes New Discharge Prescriptions: New Tamsulosin [Flomax] 0.4 mg PO DAILY #12 cap HYDROcodone/APAP 5-325MG [[place] 5-325] 1 tab PO Q6HR PRN #12 tab PRN Reason: Pain No Action Albuterol Sulfate [Proair Hfa] 2 puff INHALATION RT-QID PRN PRN Reason: Shortness Of Breath Montelukast [Singulair] 10 mg PO HS Desloratadine [Clarinex] 5 mg PO DAILY Turmeric Root Extract [Turmeric] 500 mg PO DAILY Metoprolol Succinate [Toprol XL] 25 mg PO DAILY Ary 500 mg PO DAILY Discharge Medication List Albuterol Sulfate [Proair Hfa] 2 puff INHALATION RT-QID PRN 02/22/14 [History] Montelukast [Singulair] 10 mg PO HS 08/07/17 [History] Desloratadine [Clarinex] 5 mg PO DAILY 02/27/18 [History] Metoprolol Succinate [Toprol XL] 25 mg PO DAILY 08/19/20 [History] Ary 500 mg PO DAILY 11/22/21 [History] Turmeric Root Extract [Turmeric] 500 mg PO DAILY 11/22/21 [History] HYDROcodone/APAP 5-325MG [[place] 5-325] 1 tab PO Q6HR PRN #12 tab 11/23/21 [Rx] Tamsulosin [Flomax] 0.4 mg PO DAILY #12 cap 11/23/21 [Rx] Follow up Appointment(s)/Referral(s): Vitaliy Colorado PAC [PHYSICIAN EDITOR] - 2 Weeks Fredi Rodriguez MD [STAFF PHYSICIAN] - 3 Weeks Anthony Nicole MD [STAFF PHYSICIAN] - 3 Days (Call to set up appointment [facility] for urinary retention ) Patient Instructions/Handouts: *Surgery [facility] - ([facility]) Arthroscopic Knee Post-Op Instructions Discharge Disposition: HOME SELF-CARE
== END 2021-11-24 18:42 | disposition home or self-care (01) ==
LOC: OR 09:42 → 3SCARD 11:45 → OR 11-24 18:42
PROVIDERS: ATTEND Orthopaedic Surgery
DX: M23.361 Other meniscus derangements, other lateral meniscus, right knee (principal); M23.331 Other meniscus derangements, other medial meniscus, right knee; M65.861 Other synovitis and tenosynovitis, right lower leg; I10 Essential (primary) hypertension; I34.1 Nonrheumatic mitral (valve) prolapse; J45.909 Unspecified asthma, uncomplicated; I35.1 Nonrheumatic aortic (valve) insufficiency; H57.9 Unspecified disorder of eye and adnexa; M10.9 Gout, unspecified; M17.11 Unilateral primary osteoarthritis, right knee; R33.9 Retention of urine, unspecified; I49.9 Cardiac arrhythmia, unspecified; Z47.89 Encounter for other orthopedic aftercare; Z87.891 Personal history of nicotine dependence; Z98.890 Other specified postprocedural states; Z85.01 Personal history of malignant neoplasm of esophagus; Z82.3 Family history of stroke; Z82.49 Family history of ischemic heart disease and other diseases of the circulatory system; Z79.51 Long term (current) use of inhaled steroids
CPT/HCPCS: 29880; 80051; 84443; 82550; 82553; 84484; J1100; J2765; J0690; J2405; J1885; J1170

== ENCOUNTER → 2023-06-18 | Outpatient (CLI) | payer MEDICARE ==
[2023-06-18 18:21] LABS: Basophils # (A) 0.02 X 10*3/uL (0.00-0.10); Basophils % (A) 0.4 %; Eosinophils # (A) 0.08 X 10*3/uL (0.04-0.35); Eosinophils % (A) 1.5 %; HCT 47.2 % (39.6-50.0); HGB 15.8 g/dL (13.0-17.0); Lymphocytes # (A) 0.62 X 10*3/uL (0.90-5.00); Lymphocytes % (A) 11.4 %; MCH 31.9 pg (27.0-32.0); MCHC 33.5 g/dL (32.0-37.0); MCV 95.2 FL (80.0-97.0); Mean Platelet Volume 11.5 FL (9.5-12.2); Monocytes # (A) 0.44 X 10*3/uL (0.20-1.00); Monocytes % (A) 8.1 %; NRBC Per 100 WBC 0 X 10*3/uL (0.00-0.01); Neutrophils # (A) 4.27 X 10*3/uL (1.80-7.70); Neutrophils % (A) 78.4 %; Platelet Count 143 X 10*3/uL (140-440); RBC 4.96 X 10*6/uL (4.40-5.60); RDW 12.9 % (11.5-14.5); WBC 5.44 X 10*3/uL (4.50-10.00)
[2023-06-18 18:47] LABS: ALT 23 U/L (10-49); AST 23 U/L (14-35); Albumin 4.1 g/dL (3.8-4.9); Albumin/Globulin Ratio 2.56 Ratio (1.60-3.17); Alkaline Phosphatase 80 U/L (41-126); Blood Urea Nitrogen 18.9 mg/dL (9.0-27.0); Calcium 9.2 mg/dL (8.7-10.3); Chloride 105 mmol/L (96-109); Chol/HDL Ratio 3.47 Ratio; Globulin 1.6 g/dL (1.6-3.3); Glucose 95 mg/dL (70-110); LDL Cholesterol,Calculated 88.8 mg/dL (0.0-131.0); Potassium 4.4 mmol/L (3.5-5.5); Sodium 143 mmol/L (135-145); T4, Free (Free Thyroxine) 1.46 ng/dL (0.80-1.80); Total Bilirubin 0.7 mg/dL (0.3-1.2); Total Protein 5.7 g/dL (6.2-8.2)
== END | disposition home or self-care (01) ==
LOC: LABWHC1 08:10
PROVIDERS: ATTEND Internal Medicine
DX: Z12.5 Encounter for screening for malignant neoplasm of prostate (principal); I10 Essential (primary) hypertension; E78.5 Hyperlipidemia, unspecified
CPT/HCPCS: 84439; 80061; 80053; 84443; 85025; 83036; 36415; G0103

== ENCOUNTER 2023-09-18 06:00 | Day surgery (SDC) | payer MEDICARE ==
[2023-09-17 09:15] VITALS: BMI 23.2
[2023-09-18] MEDS ORDERED: LIDOCAINE 1% (10MG/ML) FOR IV START INTRADERMA PRN (06:07)
[2023-09-18 06:30] VITALS: TEMP 97.1
[2023-09-18] MEDS: IV FLUID CONTINUATION 1,000 ML IV ONE ×2 (06:34→07:31)
[2023-09-18] MEDS: LACTATED RINGERS 1,000 ML IV SCH (06:34)
[2023-09-18] MEDS ORDERED: PROPOFOL 10 MG/ML 20 ML VIAL IV ONE (06:59)
--- NOTE | 2023-09-18 07:27 | P.PCN ---
Date of Procedure: 09/18/23 Procedure(s) Performed: Brief history: Patient is a pleasant 78-year-old white male scheduled for an elective upper endoscopy as well as colonoscopy as a part of evaluation of longstanding of GERD and change in bowel habits for the last several months duration. Procedure performed: Esophagogastroduodenoscopy with biopsy Colonoscopy Preoperative diagnosis: Longstanding history of GERD Change in bowel habits Anesthesia: MAC Procedure: After informed consent was obtained from the patient was brought into the endoscopy unit and IV sedation was administered by anesthesia under continuous monitoring. Initially upper endoscopy was done. The Olympus GF 160 video endoscope was inserted inserted into the mouth and esophagus intubated without any difficulty and was gradually advanced into the stomach and duodenum and carefully examined. The bulb and second part of the duodenum appeared normal. The scope was then withdrawn into the stomach adequately insufflated with air and upon careful examination the antrum mild gastritis and biopsies were done from this area. Mucosa of the body, cardia and fundus appeared normal. The scope was then withdrawn into the esophagus. The GE junction was located at 40 cm to the incisors. It appeared regular with no erythema erosions or ulcerations. Rest of the esophagus appeared normal. Patient tolerated the procedure well. At this time the patient continued to remain sedation. Initial digital rectal examination was normal. Olympus CF 160 video colonoscope was then inserted into the rectum and gradually advanced to the cecum without any difficulty. Careful examination was performed as the scope was gradually being withdrawn. The prep was excellent. The cecum, ascending colon, transverse colon, descending colon, sigmoid colon and rectum appeared normal. Retroflexion was performed in the rectum and no lesions were noted. Patient tolerated the procedure well. Impression: 1. Upper endoscopy revealed mild antral gastritis but no evidence of esophagitis or Whittaker's esophagus 2. Colonoscopy was within normal limits with no evidence of colorectal Recommendations: Findings of this examination were discussed with the patient as well as his family. He was advised to follow-up with the biopsy results. Continue with high-fiber diet and fiber supplements on a regular basis.
[2023-09-18 08:06] VITALS: BP 139/78; PULSE 55; RESP 18
== END 2023-09-18 08:31 | disposition home or self-care (01) ==
LOC: ORWHC2ENDO 06:00
PROVIDERS: ATTEND Internal Medicine Gastroenterology
DX: K29.70 Gastritis, unspecified, without bleeding (principal); K21.9 Gastro-esophageal reflux disease without esophagitis; R19.4 Change in bowel habit; I10 Essential (primary) hypertension; N40.0 Benign prostatic hyperplasia without lower urinary tract symptoms; J45.909 Unspecified asthma, uncomplicated; I48.92 Unspecified atrial flutter; F41.0 Panic disorder [episodic paroxysmal anxiety]; Z79.51 Long term (current) use of inhaled steroids; Z79.899 Other long term (current) drug therapy
CPT/HCPCS: 88305; 45378; 43239; J2704